=== PATIENT | female | born 1960 | race Caucasian/White ===

== ENCOUNTER 2016-06-20 10:03 | Emergency (ER) | payer OTHER ==
--- NOTE | 2016-06-20 10:45 | ED ---
General Adult HPI - General Chief complaint: ENT Stated complaint: Head/ears/back pain Time Seen by Provider: 06/20/16 10:40 Source: patient, RN notes reviewed Mode of arrival: ambulatory Limitations: no limitations - History of Present Illness Initial comments: 56-year-old female presenting for bilateral ear pain. Patient states she's had sinus congestion for the past several days. She developed bilateral ear pain yesterday which is worsening. She also developed discharge from her left ear last evening. She states that she is having some significant pain on both sides , but it is improved with extra strength Tylenol. She denies any fevers or chills. She does states she's had some nonproductive cough associated. She denies any chest pain or shortness of breath. - Related Data Home Medications Medication Instructions Recorded Confirmed Acetaminophen [Tylenol] 500 mg PO Q4-6H PRN 06/20/16 06/20/16 Previous Rx's Medication Instructions Recorded Amoxicillin 500 mg PO Q12HR 7 Days 06/20/16 Fluticasone Nasal [place] [Flonase 2 spr EA NOSTRIL DAILY #1 bottle 06/20/16 Nasal [place]] Ofloxacin 0.3% Otic Soln [Floxin 10 drops BOTH EARS BID 7 Days 06/20/16 0.3% Otic Soln] Allergies Allergy/AdvReac Type Severity Reaction Status Date / Time No Known Allergies Allergy Unverified 06/20/16 10:34 Review of Systems ROS Statement: Those systems with pertinent positive or pertinent negative responses have been documented in the HPI. ROS Other: All systems not noted in ROS Statement are negative. Past Medical History Past Medical History: Coronary Artery Disease (CAD) History of Any Multi-Drug Resistant Organisms: None Reported Past Surgical History: Coronary Bypass/CABG Past Psychological History: No Psychological Hx Reported Smoking Status: Former smoker Past Alcohol Use History: None Reported Past Drug Use History: None Reported General Exam - General Exam Comments Initial Comments: General: Awake and Alert. No acute distress. Does not appear acutely ill. Eyes: TRI, EOM intact. No nystagmus. No scleral icterus. HENT: Atraumatic, normocephalic. Mucous membranes moist. Trachea midline. Right TM with erythema and mild bulging. Left TM with erythema with what appears to be a small perforation, and purulent discharge. No mastoid tenderness. Neck: The neck is supple, there is no tenderness or JVD. There is no neck swelling. Cardiovascular: Regular rate and rhythm. No murmur, rub, or gallop is appreciated. Distal pulses intact. Respiratory: Lungs are clear to auscultation bilaterally. No wheezes, rales, rhonchi. No respiratory distress. Gastrointestinal: Soft, Nontender. No rebound or guarding. Non-distended. No masses or organomegaly noted. No CVA tenderness. Musculoskeletal: No tenderness. Normal ROM. No gross deformity. No strength deficits. Neurological: A&Ox3. CN II-XII grossly intact, There are no obvious motor or sensory deficits. Coordination appears grossly intact. Speech is normal. Skin: Skin is warm and dry and no rashes or lesions are noted. Psychiatric: Cooperative, appropriate mood & affect, normal judgment. Limitations: no limitations Course Vital Signs 06/20/16 10:25 Temperature 97.7 F Pulse Rate 69 Respiratory 18 Rate Blood Pressure 129/59 O2 Sat by Pulse 98 Oximetry Medical Decision Making - Medical Decision Making 56-year-old female presenting for bilateral ear pain. Left ear with evidence of TM perforation likely secondary to otitis media. Discussed antibiotic coverage with amoxicillin as well as topical coverage with ofloxacin drops. Rx provided. Discussed continuing NSAIDs for pain as needed. Does not appear to have evidence of mastoiditis or significant infectious etiology requiring IV antibiotic coverage at this time. Was given ENT follow-up information. Discussed follow-up with her PCP as well. Discussed concerning signs and symptoms for immediate return to the ED. Patient is agreeable to plan and discharge home. Disposition Clinical Impression: Otitis media, suppurative, Acute rhinosinusitis Disposition: HOME SELF-CARE Condition: Stable Instructions: Otitis Media (ED) Additional Instructions: Extra strength Tylenol or Motrin are fine to use for pain. Prescriptions: Amoxicillin 500 mg PO Q12HR 7 Days Fluticasone Nasal [place] [Flonase Nasal [place]] 2 spr EA NOSTRIL DAILY #1 bottle Ofloxacin 0.3% Otic Soln [Floxin 0.3% Otic Soln] 10 drops BOTH EARS BID 7 Days Referrals: Nino Vyas DO [Primary Care Provider] - 1-2 days Tanner Gardiner DO [Doctor of Osteopathic Medicine] - 1-2 days Time of Disposition: 10:50
[2016-06-20 11:30] VITALS: BP 114/60; PULSE 75; RESP 20; TEMP 97.4
== END 2016-06-20 11:28 | disposition home or self-care (01) ==
LOC: EC 10:03
DX: J01.90 Acute sinusitis, unspecified (principal); H66.43 Suppurative otitis media, unspecified, bilateral; H72.92 Unspecified perforation of tympanic membrane, left ear; Z87.891 Personal history of nicotine dependence
CPT/HCPCS: 99283

== ENCOUNTER → 2017-12-06 | Outpatient (CLI) | payer OTHER | END | disposition home or self-care (01) | LOC: LABWHC1 11:01 | PROVIDERS: ATTEND Internal Medicine | DX: Z13.88 Encounter for screening for disorder due to exposure to contaminants (principal) | CPT/HCPCS: 36415; 83655 ==

== ENCOUNTER → 2017-12-12 | Outpatient (CLI) | payer OTHER ==
--- NOTE | 2017-12-20 09:27 | MM ---
Reason for exam: screening (asymptomatic). Last mammogram was performed 6 years and 1 month ago. History: Patient is postmenopausal. Family history of breast cancer in 2 cousins. Physical Findings: A clinical breast exam by your physician is recommended on an annual basis and results should be correlated with mammographic findings. MG Screening Mammo w CAD Bilateral CC and MLO view(s) were taken. Prior study comparison: November 16, 2011, mammogram, performed at [facility]. The breast tissue is heterogeneously dense. This may lower the sensitivity of mammography. There is chronic nodularity in the left breast. No significant changes when compared with prior studies. ASSESSMENT: Benign, BI-RAD 2 RECOMMENDATION: Routine screening mammogram of both breasts in 1 year.
== END | disposition home or self-care (01) ==
LOC: RADMAMWWP 14:02
PROVIDERS: ATTEND Internal Medicine
DX: Z12.31 Encounter for screening mammogram for malignant neoplasm of breast (principal)
CPT/HCPCS: 77067

== ENCOUNTER → 2017-12-12 | Outpatient (CLI) | payer OTHER ==
--- NOTE | 2017-12-12 14:49 | XR ---
EXAMINATION TYPE: XR chest 2V DATE OF EXAM: 12/12/2017 COMPARISON: 06/15/2009 TECHNIQUE: PA and lateral views submitted. HISTORY: Difficulty in breathing FINDINGS: The lungs are clear and there is no pneumothorax, pleural effusion, or focal pneumonia. Postsurgica l change. Biapical pleural thickening. Hyperinflation. Hypertrophic and degenerative change of the sp ine. IMPRESSION: 1. No acute process.
== END | disposition home or self-care (01) ==
LOC: RADXRMAIN 14:24
PROVIDERS: ATTEND Internal Medicine
DX: Z72.0 Tobacco use (principal)
CPT/HCPCS: 71046

== ENCOUNTER → 2018-01-11 | Outpatient (CLI) | payer OTHER ==
--- NOTE | 2018-01-11 13:21 | P.STRESS ---
- Stress Test Note Stress Test Results/Findings: Exam Performed: stress test Exam Date: 01/11/18 Reason for Exam: Chest Pain Height: 5 ft 5 in Weight: 72.575 kg Protocol: Vishal Stage: III Duration of Exercise: 7:46 Resting Heart Rate: 58 Resting Blood Pressure: 128/64 Maximum Achieved Heart Rate: 139 Maximum Achieved Blood Pressure: 160/67 85% PMHR: 139 100% PMHR: 163 METS: 9.3 Technologist Comment: Stress Test Results/Findings: This is a this is a 57-year-old female being evaluated for chest pains. Patient has history of diabetes and hypercholesterolemia and smoking history and also family history. Stress data: Baseline EKG showed sinus rhythm with mild diffuse ST-T changes. Blood pressure at rest is 128/64 with pulse rate of 58. Patient walked on the Vishal protocol for about 7 minutes and 46 seconds achieving a maximum heart rate of 139 with blood pressure of 160/67 and EKGs taken during and after the exercise did not reveal any significant changes from the baseline. Patient did not express any chest pain. Final impression: #1. Negative stress test #2 patient did not explains any chest pain #3. Patient's exercise capacity is average. #4. No arrhythmias are detected.
== END ==
LOC: RADNMMAIN 08:23
PROVIDERS: ATTEND Internal Medicine
DX: R07.89 Other chest pain (principal)
CPT/HCPCS: 93017